=== PATIENT | male | born 1995 | race Caucasian/White ===

== ENCOUNTER 2021-10-13 06:34 | Emergency (ER) | payer OTHER ==
[~2021-10-13] VITALS: Ht 190.5 cm; Wt 100.0 kg
[2021-10-13] MEDS ORDERED: LEVETIRACETAM 1000MG PREMIX 100 ML IV ONE (08:15)
[2021-10-13 08:32] LABS: BASOPHILS % 0.4 % (0.0-2.0); EOSINOPHILS % 2.4 % (0.0-5.0); HEMOGLOBIN. 15.8 g/dL (14.0-18.0); LYMPHOCYTES % 18.3 % (20.0-50.0); MEAN CORPUSCULAR HEMOGLOBIN 30.2 pg (28.0-32.0); MEAN CORPUSCULAR VOLUME 87.9 fL (80.0-94.0); MONOCYTES % 4.5 % (2.0-8.0); NEUTROPHILS % 74.4 % (40.0-76.0); PLATELET 276 x1000/uL (130-400); RED BLOOD CELL COUNT 5.24 mill/uL (4.7-6.1); RED CELL DISTRIBUTION WIDTH 12.6 % (11.6-14.6)
[2021-10-13 08:39] LABS: CHLORIDE 106 mEq/L (98-107)
[2021-10-13 08:47] LABS: ETHANOL BLOOD < 10 mg/dL; PHOSPHORUS 2.3 mg/dL (2.5-4.9)
[2021-10-13] MEDS ORDERED: POTASSIUM-SODIUM PHOSPHATE POWDER PACKET PO ONE (11:30)
[2021-10-13] MEDS ORDERED: KEPP500 MT (12:16)
[2021-10-13 13:02] VITALS: BP 115/67
== END 2021-10-13 13:05 | disposition home or self-care (01) ==
LOC: ER 06:34
DX: R56.9 Unspecified convulsions (principal)
CPT/HCPCS: 36415; 70450; 80053; 80320; 83735; 84100; 85025; 96365; 99285; J1953; Z7610; G0480